=== PATIENT | male | born 1985 | race African-American/Black ===

== ENCOUNTER 2020-02-10 19:51 | Emergency (ER) | payer OTHER, MEDICAID ==
[~2020-02-10] VITALS: Ht 190.5 cm; Wt 106.6 kg
[2020-02-10 20:11] VITALS: BP_SYST 156
--- NOTE | 2020-02-10 20:57 | NUR ---
Patient came to ER with family. C/O left toe pain x 2 days. Patient reported, started with left great toe pain, progression to left foot pain and swelling, denies injiury or trauma, no numbness or tingling. A/OX4, left great toe pain and left foot pain, swelling, pain rate 10/10.
--- NOTE | 2020-02-10 20:57 | NUR ---
Patient came back from X-ray via wheelchair and place on H1.
--- NOTE | 2020-02-10 20:59 | NUR ---
ER at bedside examining patient.
--- NOTE | 2020-02-10 21:08 | NUR ---
Blood for labwork drawn from director of social services. Patient tolerated well.
[2020-02-10 21:38] LABS: C-REACTIVE PROTEIN QUANT 3.1 mg/dL (0-0.5); URIC ACID 9.6 mg/dL (2.4-7.0)
[2020-02-10] MEDS ORDERED: KETOROLAC TROMETHAMINE 60 MG/2 ML VIAL IM ONE (22:15)
[2020-02-10 23:11] VITALS: BP_SYST 156
--- NOTE | 2020-02-10 23:11 | NUR ---
Patient given written and verbal discharge instructions and verbalizes understanding. ER MD discussed with patient the results and treatment provided. Patient in stable condition. ID arm band removed. Rx of Motrin given. Patient educated on pain management and to follow up with PMD. Pain Scale 2/10. Opportunity for questions provided and answered. Medication side effect fact sheet provided.
== END 2020-02-10 23:11 | disposition home or self-care (01) ==
LOC: SED 19:51
DX: M79.675 Pain in left toe(s) (principal)
CPT/HCPCS: 36415; 73630; 84550; 85651; 86140; 96372; 99284; J1885

== ENCOUNTER 2020-03-13 04:23 | Emergency (ER) | payer MEDICAID, OTHER ==
[~2020-03-13] VITALS: Ht 190.5 cm; Wt 106.6 kg
--- NOTE | 2020-03-13 04:23 | NUR ---
Patient to ER bed 6 to gown for evaluation. Side rails up.
--- NOTE | 2020-03-13 04:30 | NUR ---
Dr. Pablo [facility] for pt eval
[2020-03-13 04:35] VITALS: BP_SYST 147
--- NOTE | 2020-03-13 04:45 | NUR ---
Pt BIB family to ED C/O syncopal episode at 0200hrs. Reports brief loss of consciousness possible hit head by the refrigerator witnessed by . Denies pain Admits to drinking whisky, states "couple of drinks" VSS no other complaints noted Resting on gurney rails up
--- NOTE | 2020-03-13 05:38 | NUR ---
VSS no s/s of acute distress. Radiology / CT Scan study well tolerated
[2020-03-13 06:30] VITALS: BP_SYST 147
--- NOTE | 2020-03-13 06:30 | NUR ---
Patient given written and verbal discharge instructions and verbalizes understanding. ER MD discussed with patient the results and treatment provided. Patient in stable condition. ID arm band removed. Patient educated on pain management and to follow up with PMD. Pain Scale 0/10 Opportunity for questions provided and answered.
== END 2020-03-13 06:30 | disposition home or self-care (01) ==
LOC: SED 04:23
DX: R55 Syncope and collapse (principal); Z71.6 Tobacco abuse counseling
CPT/HCPCS: 70450-TC; 76376; 93005; 99284

== ENCOUNTER 2020-11-10 17:23 | Emergency (ER) | payer MEDICAID, SELFPAY ==
[~2020-11-10] VITALS: Ht 190.5 cm; Wt 99.8 kg
[2020-11-10 17:29] VITALS: BP_SYST 136
--- NOTE | 2020-11-10 17:29 | NUR ---
PT TO BED 8 FOR EVALUATION. REPORT GIVEN TO KRIS VERDUZCO WHO WILL ASSUME CARE.
--- NOTE | 2020-11-10 17:30 | NUR ---
Pt walked in to ER with c/o fever, cough and SOB x 2 days. O2 sat 96% on RA. V/S stable.
--- NOTE | 2020-11-10 17:30 | NUR ---
ER Dr. Goodson at bedside examining patient.
--- NOTE | 2020-11-10 17:46 | NUR ---
Radiology at bedside for CXR.
[2020-11-10] MEDS ORDERED: PRED20TA PO (19:04)
[2020-11-10] MEDS ORDERED: ALBMDI INH (19:04)
[2020-11-10] MEDS ORDERED: ZIT250 PO (19:05)
--- NOTE | 2020-11-10 19:06 | NUR ---
Care of patient endorsed to KRIS Ortiz. Pt currently resting in bed, no distress noted.
--- NOTE | 2020-11-10 19:10 | NUR ---
Dr. Goodson at bedside to explain lab results and treatment plans.
[2020-11-10 19:26] VITALS: BP_SYST 136
--- NOTE | 2020-11-10 19:26 | NUR ---
Patient given written and verbal discharge instructions and verbalizes understanding. ER MD discussed with patient the results and treatment provided. Patient in stable condition. ID arm band removed. Rx of Proair HFA, Prednisone and Zithromax given. Patient educated on pain management and to follow up with PMD. Pain Scale 0/10. Opportunity for questions provided and answered. Medication side effect fact sheet provided.
== END 2020-11-10 19:27 | disposition home or self-care (01) ==
LOC: SED 17:23
DX: U07.1 COVID-19 (principal); Z79.899 Other long term (current) drug therapy
CPT/HCPCS: 36415; 71045; 99284